=== PATIENT | female | born 1990 | race Caucasian/White ===

== ENCOUNTER 2017-11-11 13:06 | Emergency (ER) | payer SELFPAY ==
--- NOTE | 2017-11-11 14:29 | EDPHY ---
General - History Smoking Status: Never smoked Narrative: CHIEF COMPLAINT: Abdominal pain HISTORY OF PRESENT ILLNESS: The patient presents with complaints of right-sided abdominal pain. This started on Thursday night into Thursday morning. She at 1st thought it was related to her PCOS type of pain as it is lower in the abdomen. It is also in the pelvic. Was not a sudden onset. It is not severe. It does come and go but never fully goes away. It is now moving up to the right flank at times. No vomiting. No nausea. No shortness of breath. No vaginal bleeding or discharge. She does have an or a Mirena IUD. No other associated complaints or modifying factors. REVIEW OF SYSTEMS: Ten systems reviewed and are negative unless otherwise noted in the HPI PCP: None SPECIALISTS: None PAST MEDICAL HISTORY: PCOS PAST SURGICAL HISTORY: D and C SOCIAL HISTORY: Nonsmoker. Lives and works here locally FAMILY HISTORY: Noncontributory EXAMINATION General Appearance: Alert, no distress Head: normocephalic, atraumatic Eyes: Pupils equal and round, no conjunctival pallor or injection ENT, Mouth: Mucous membranes moist Neck: Normal inspection, supple, non-tender Respiratory: Lungs are clear to auscultation. No wheezing, rhonchi or crackles Cardiovascular: Regular rate and rhythm. No murmur Gastrointestinal: Abdomen is soft and nondistended. Mild tenderness in the right upper quadrant and right CVA. Minimal tenderness in right lower quadrant and suprapubic region. No guarding. No rebound. No distention or tympany. Negative McBurney. Neurological: A&O, nonfocal, normal gait. Strength symmetric Skin: Warm and dry, no rash. No petechiae or purpura Extremities: Nontender, no pedal edema Psychiatric: Mood and affect normal DIFFERENTIAL DIAGNOSES: Including but not limited to pyelonephritis, renal colic, appendicitis, colitis , ovarian torsion, ovarian cysts MDM: 2:25 p.m. right-sided abdominal and flank pain. This started developing on Thursday. Abdominal exam is nonacute. Suspect stone versus is pelvic in nature. Urinalysis is pending. She is in no acute distress with stable vital signs. She is afebrile with no flu-like symptoms. 2:30 p.m. Urinalysis suggest infection with microscopic hematuria. Her flank pain was minimal on examination and by history. Her right lower quadrant pain he was more severe. Thus I have started with ultrasound of the appendix and her pelvis to rule out torsion of appendicitis. Remainder of laboratory studies pending. She is in no acute distress 3:15 p.m. Urinalysis reveals infection. CBC pending. Chemistry pending. She has her ultrasounds being performed at this time. I discussed the case with Dr. Mendoza and she will examine the patient. 3:45 p.m. Patient re-evaluated. She has also been evaluated by Dr. Mendoza. She is resting comfortably in no acute distress. Her ultrasounds have been performed but not yet read. We discussed treatment for UTI/early pyelonephritis. She is in no acute distress and requires no pain medication at this time 4:10 p.m. Notified by radiologist Dr. Goldman. Right lower quadrant ultrasound reveals no evidence of acute appendicitis. Pelvic ultrasound reveals small amount of fluid and possible mild imbedding of IUD. I have re-evaluated the patient. She is beginning to improve. She is feeling well enough to go home. She is afebrile with vital signs stable. We discussed discharge home with treatment of pyelonephritis. I will provide the on-call primary care physician, antibiotic prescription, pain medication. We discussed strict ED precautions for fever, worsening pain, vomiting, difficulty urinating. She will follow up accordingly and return to the ED if her symptoms worsen. She is comfortable this plan and discharged home in stable condition after IV Rocephin. SUPERVISION: Patient was evaluated and examined in conjunction with my secondary supervising physician as documented. We have both examined the patient. (Wayne Pastor) - Diagnostics Imaging Results: Imaging Impressions Abdomen Ultrasound 11/11/17 14:30 Impression: Negative limited right lower quadrant ultrasound, specifically, there are no secondary findings to support a clinical diagnosis of acute appendicitis. Results called and discussed with Wayne Pastor on 11/11/2017 at 16:06 Pelvic/Renal Ultrasound 11/11/17 14:32 Impression: 1. No definite features to explain right-sided pain. 2. IUD in place with possibility of lateral aspect of the left arm embedded in the myometrium. 3. A small amount of fluid is seen in the dependent portion of the pelvis. Results called and discussed with Wayne Pastor on 11/11/2017 at 16:12 Discussion: I evaluated and participated in the management of the patient. I also evaluated the patient independently. My co-signature indicates that I have reviewed this chart and I agree with the findings and plan of care as documented. My personal H&P findings include: 27-year-old female presenting with suprapubic and right lower quadrant abdominal discomfort for the last 2 days. She has also had mild dysuria. Does have a history of ovarian cysts. No fevers or vomiting. Today she noted that the discomfort seemed to radiate around to her right flank. On examination the patient has mild right lower quadrant tenderness, slightly below McBurney's point. She also has mild right CVA tenderness. She is afebrile. Urinalysis is consistent with a significant urinary tract infection. Patient did undergo of ultrasound to evaluate both for her ovarian cyst as well as for appendicitis. While the appendix was not clearly visualize her no secondary signs of appendicitis. Without a fever, vomiting, anorexia, or elevated white count at this point, after 2-3 days of symptoms, and a urine which seems to be the source of the patient's discomfort, we will treat patient for pyelonephritis. She understands that she should return to the emergency department or seek care urgently if she is not improving as expected especially if she is worsening with worsening focal abdominal pain, vomiting, fevers, anorexia, or other concerns. (Mily Mendoza) - Objective Vital Signs: Initial Vital Signs Temperature (C) 37.1 C 11/11/17 13:53 Heart Rate 83 11/11/17 13:53 Respiratory Rate 20 11/11/17 13:53 Blood Pressure 151/83 H 11/11/17 13:53 O2 Sat (%) 97 11/11/17 13:53 O2 Delivery Mode Room Air Allergies/Adverse Reactions: oxycodone Allergy (Verified 11/11/17 13:53) Home Medications: Medication Instructions Recorded Cephalexin [Keflex (*)] 500 mg PO TID #21 cap 11/11/17 Phenazopyridine HCl [Pyridium] 200 mg PO TID #5 tab 11/11/17 traMADol [Ultram 50 mg (*)] 50 mg PO Q4 PRN #12 tab 11/11/17 Laboratory Results: Laboratory Results 11/11/17 14:33 11/11/17 14:33 11/11/17 11/11/17 11/11/17 14:33 14:33 14:33 WBC 5.71 10^3/uL 10^3/uL (3.80-9.50) RBC 4.58 10^6/uL 10^6/uL (4.18-5.33) Hgb 14.0 g/dL g/dL (12.6-16.3) Hct 40.4 % % (38.0-47.0) MCV 88.2 fL fL (81.5-99.8) MCH 30.6 pg pg (27.9-34.1) MCHC 34.7 g/dL g/dL (32.4-36.7) RDW 12.1 % % (11.5-15.2) Plt Count 186 10^3/uL 10^3/uL (150-400) MPV 9.9 fL fL (8.7-11.7) Neut % (Auto) 63.7 % % (39.3-74.2) Lymph % (Auto) 24.0 % % (15.0-45.0) [place] % (Auto) 7.7 % % (4.5-13.0) Eos % (Auto) 3.7 % % (0.6-7.6) Baso % (Auto) 0.7 % % (0.3-1.7) Nucleat RBC Rel Count 0.0 % % (0.0-0.2) Absolute Neuts (auto) 3.64 10^3/uL 10^3/uL (1.70-6.50) Absolute Lymphs (auto) 1.37 10^3/uL 10^3/uL (1.00-3.00) Absolute Monos (auto) 0.44 10^3/uL 10^3/uL (0.30-0.80) Absolute Eos (auto) 0.21 10^3/uL 10^3/uL (0.03-0.40) Absolute Basos (auto) 0.04 10^3/uL 10^3/uL (0.02-0.10) Absolute Nucleated RBC 0.00 10^3/uL 10^3/uL (0-0.01) Immature Gran % 0.2 % % (0.0-1.1) Immature Gran # 0.01 10^3/uL 10^3/uL (0.00-0.10) Sodium 139 mEq/L mEq/L (135-145) Potassium 4.2 mEq/L mEq/L (3.5-5.2) Chloride 103 mEq/L mEq/L (97-110) Carbon Dioxide 24 mEq/l mEq/l (22-31) Anion Gap 12 mEq/L mEq/L (8-16) BUN 10 mg/dL mg/dL (7-23) Creatinine 0.8 mg/dL mg/dL (0.6-1.0) Estimated GFR > 60 Glucose 81 mg/dL mg/dL (70-100) Calcium 8.7 mg/dL mg/dL (8.5-10.4) Total Bilirubin 0.7 mg/dL mg/dL (0.1-1.4) Conjugated Bilirubin 0.3 mg/dL mg/dL (0.0-0.5) Unconjugated Bilirubin 0.4 mg/dL mg/dL (0.0-1.1) AST 20 IU/L IU/L (14-46) ALT 27 IU/L IU/L (9-52) Alkaline Phosphatase 52 IU/L IU/L (38-126) Total Protein 6.2 g/dL L g/dL (6.3-8.2) Albumin 3.7 g/dL g/dL (3.5-5.0) Lipase 109 IU/L IU/L (23-300) Beta HCG, Qual NEGATIVE Urine Color Urine Appearance Urine pH Ur Specific [place] Urine Protein Urine Ketones Urine Blood Urine Nitrate Urine Bilirubin Urine Urobilinogen Ur Leukocyte Esterase Urine RBC Urine WBC Ur Epithelial Cells Urine Bacteria Urine Mucus Urine Glucose 11/11/17 14:00 WBC RBC Hgb Hct MCV MCH MCHC RDW Plt Count MPV Neut % (Auto) Lymph % (Auto) [place] % (Auto) Eos % (Auto) Baso % (Auto) Nucleat RBC Rel Count Absolute Neuts (auto) Absolute Lymphs (auto) Absolute Monos (auto) Absolute Eos (auto) Absolute Basos (auto) Absolute Nucleated RBC Immature Gran % Immature Gran # Sodium Potassium Chloride Carbon Dioxide Anion Gap BUN Creatinine Estimated GFR Glucose Calcium Total Bilirubin Conjugated Bilirubin Unconjugated Bilirubin AST ALT Alkaline Phosphatase Total Protein Albumin Lipase Beta HCG, Qual Urine Color YELLOW Urine Appearance HAZY Urine pH 5.0 (5.0-7.5) Ur Specific [place] 1.017 (1.002-1.030) Urine Protein NEGATIVE (NEGATIVE) Urine Ketones NEGATIVE (NEGATIVE) Urine Blood 1+ H (NEGATIVE) Urine Nitrate POSITIVE H (NEGATIVE) Urine Bilirubin NEGATIVE (NEGATIVE) Urine Urobilinogen NEGATIVE EU EU (0.2-1.0) Ur Leukocyte Esterase TRACE H (NEGATIVE) Urine RBC 1-3 /hpf /hpf (0-3) Urine WBC 25-50 /hpf H /hpf (0-3) Ur Epithelial Cells TRACE /lpf /lpf (NONE-1+) Urine Bacteria 3+ /hpf H /hpf (NONE SEEN) Urine Mucus TRACE /lpf /lpf (NONE-1+) Urine Glucose NEGATIVE (NEGATIVE) Medications Given: Discontinued Medications Fentanyl (Sublimaze) 50 mcg IVP EDNOW ONE Stop: 11/11/17 15:51 Last Admin: 11/11/17 16:20 Dose: 50 mcg Ceftriaxone Sodium 1 gm/ (Sterile Water) 10 mls @ 150 mls/hr IV EDNOW ONE PRN Reason: Protocol Stop: 11/11/17 15:15 Last Admin: 11/11/17 16:11 Dose: 10 mls Sodium Chloride (Ns) 1,000 mls @ 0 mls/hr IV EDNOW ONE; Wide Open PRN Reason: Protocol Stop: 11/11/17 15:13 Last Admin: 11/11/17 15:15 Dose: 1,000 mls Departure - Departure Disposition: Home, Routine, Self-Care Clinical Impression: Acute pyelonephritis Condition: Good Instructions: Urinary Tract Infection in Women (ED), Kidney Infection (ED) Additional Instructions: 1. Medications as prescribed as needed 2. Contact the on-call primary care physician as provided 3. Contact the on-call color laboratory technician as provided 4. ED precautions as discussed Referrals: NONE *PRIMARY CARE P,. [Primary Care Provider] - As per Instructions Candi Santizo MD [Medical Doctor] - As per Instructions Saravanan Ronquillo MD [Medical Doctor] - As per Instructions Stand Alone Forms: Work Excuse Prescriptions: Cephalexin [Keflex (*)] 500 mg PO TID #21 cap Phenazopyridine HCl [Pyridium] 200 mg PO TID #5 tab traMADol [Ultram 50 mg (*)] 50 mg PO Q4 PRN #12 tab PRN Reason: Pain, Mild
[2017-11-11 14:44] LABS: PLATELET COUNT 186 10^3/uL (150-400)
[2017-11-11] MEDS ORDERED: cefTRIAXone 1 GM in STERILE WATER INJ 10 ML IV ONE (15:12)
[2017-11-11] MEDS ORDERED: NS 1,000 ML IV ONE (15:12)
[2017-11-11] MEDS ORDERED: fentaNYL 100 MCG/2 ML INJ IVP ONE (15:50)
[2017-11-11 16:38] VITALS: RESP 16; O2SAT 96
[2017-11-11 17:16] VITALS: BP 124/74; PULSE 82; TEMP 98.2
== END 2017-11-11 17:16 | disposition home or self-care (01) ==
DX: N10 Acute pyelonephritis (principal); B96.1 Klebsiella pneumoniae [K. pneumoniae] as the cause of diseases classified elsewhere; E86.9 Volume depletion, unspecified
CPT/HCPCS: 96365; J0696; J3010